=== PATIENT | female | born 1980 | race Caucasian/White ===

== ENCOUNTER 2022-11-16 07:23 | Day surgery (SDC) | payer BC ==
[~2022-11-16 07:23] MED LIST: Lactated Ringers 1,000 ML IV SCH; Sodium Chloride 0.9% 10 ML Syringe FLUSH PRN; Sodium Chloride 0.9% 2.5 ML Syringe FLUSH PRN; Sodium Chloride 0.9% 20 ML SDV IV PRN
[2022-11-16] MEDS ORDERED: Lidocaine 2% 5 ML SDV ONE (08:04)
[2022-11-16] MEDS ORDERED: fentaNYL 100 MCG/2 ML SDV ONE (08:05)
[2022-11-16] MEDS ORDERED: Propofol 200 MG/20 ML SDV ONE ×2 (08:05→09:04)
== END 2022-11-16 09:47 | disposition home or self-care (01) ==
LOC: MW.SDS 07:23
PROVIDERS: ATTEND Surgery
DX: Z12.11 Encounter for screening for malignant neoplasm of colon (principal); D12.2 Benign neoplasm of ascending colon; Z80.0 Family history of malignant neoplasm of digestive organs; E66.3 Overweight; Z88.1 Allergy status to other antibiotic agents; Z88.0 Allergy status to penicillin; Z88.2 Allergy status to sulfonamides; Z88.8 Allergy status to other drugs, medicaments and biological substances; Z68.26 Body mass index [BMI] 26.0-26.9, adult; Z87.891 Personal history of nicotine dependence
CPT/HCPCS: 81025; J2704; J3010; J3490; J7120